=== PATIENT | male | born 2000 | race African-American/Black ===

== ENCOUNTER 2019-11-23 01:24 | Inpatient (IN) | payer MEDICAID, OTHER ==
[~2019-11-23] VITALS: Ht 188 cm; Wt 74.8 kg
[~2019-11-23 01:24] MED LIST: albuterol inhaler
[2019-11-23] MEDS ORDERED: SODIUM CHLORIDE 0.9% 1,000 ML IV ONE (02:15)
[2019-11-23] MEDS ORDERED: FAMOTIDINE 20MG/2ML VIAL IV STA (02:15)
[2019-11-23] MEDS ORDERED: ONDANSETRON HCL 4MG/2ML INJ IV STA (02:15)
[2019-11-23] MEDS ORDERED: MORPHINE SULFATE 4 MG/ML CPJ (NOT FOR IM USE) IV STA (02:15)
[2019-11-23 02:59] LABS: BASOPHILS % 0.2 % (0.0-2.0); EOSINOPHILS % 0.9 % (0.0-5.0); HEMATOCRIT. 44.5 % (42.0-52.0); HEMOGLOBIN. 15.4 g/dL (14.0-18.0); LYMPHOCYTES % 13.3 % (20.0-50.0); MEAN CORPUSCULAR HEMOGLOBIN 29.4 pg (28.0-32.0); MEAN CORPUSCULAR VOLUME 84.6 fL (80.0-94.0); MEAN PLATELET VOLUME 8.9 fl (7.4-10.4); MONOCYTES % 7.2 % (2.0-8.0); NEUTROPHILS % 78.4 % (40.0-76.0); PLATELET 176 x1000/uL (130-400); RED BLOOD CELL COUNT 5.26 mill/uL (4.7-6.1); RED CELL DISTRIBUTION WIDTH 13.5 % (11.6-14.6)
[2019-11-23 03:04] LABS: CHLORIDE 107 mEq/L (98-107)
[2019-11-23] MEDS ORDERED: MORPHINE SULFATE 4 MG/ML CPJ (NOT FOR IM USE) IV NR (04:30)
[2019-11-23] MEDS ORDERED: ONDANSETRON HCL 4MG/2ML INJ IV ONE (06:15)
[2019-11-23] MEDS: DEXT 5%/0.45% NACL 1000ML 1,000 ML IV SCH ×2 (09:20→20:42)
[2019-11-23] MEDS: MORPHINE SULFATE 2 MG/ML CPJ (NOT FOR IM USE) IV PRN ×3 (09:20→20:41)
[2019-11-23] MEDS: ONDANSETRON HCL 4MG/2ML INJ IV PRN ×2 (09:20→19:06)
[2019-11-23] MEDS ORDERED: PIPERACILLIN/TAZ 3.375G PREMIX 50 ML IV NR (11:19)
[2019-11-23 12:40] VITALS: BP 147/77
[2019-11-23 13:00] VITALS: BP 147/77
[2019-11-23 16:00] VITALS: BP 152/74
[2019-11-23] MEDS: PIPERACILLIN/TAZOBACTAM 3.375 G in DEXT 5% WATER 100 ML IV SCH (18:16)
[2019-11-23 20:00] VITALS: BP 149/67
[2019-11-24] VITALS: BP 144/60
[2019-11-24] MEDS: MORPHINE SULFATE 2 MG/ML CPJ (NOT FOR IM USE) IV PRN ×5 (01:47→22:58)
[2019-11-24] MEDS: PIPERACILLIN/TAZOBACTAM 3.375 G in DEXT 5% WATER 100 ML IV SCH ×4 (02:19→21:04)
[2019-11-24 04:00] VITALS: BP 156/80
[2019-11-24 05:47] LABS: CHLORIDE 105 mEq/L (98-107)
[2019-11-24 06:06] LABS: BASOPHILS % 0.1 % (0.0-2.0); EOSINOPHILS % 0.2 % (0.0-5.0); HEMATOCRIT. 44.4 % (42.0-52.0); HEMOGLOBIN. 15.2 g/dL (14.0-18.0); LYMPHOCYTES % 10.3 % (20.0-50.0); MEAN CORPUSCULAR HEMOGLOBIN 29.1 pg (28.0-32.0); MEAN CORPUSCULAR VOLUME 84.7 fL (80.0-94.0); MEAN PLATELET VOLUME 8.7 fl (7.4-10.4); MONOCYTES % 8.5 % (2.0-8.0); NEUTROPHILS % 80.9 % (40.0-76.0); PLATELET 160 x1000/uL (130-400); RED BLOOD CELL COUNT 5.24 mill/uL (4.7-6.1); RED CELL DISTRIBUTION WIDTH 13.2 % (11.6-14.6)
[2019-11-24] MEDS: DEXT 5%/0.45% NACL 1000ML 1,000 ML IV SCH ×2 (07:38→15:06)
[2019-11-24 08:00] VITALS: BP 129/55
[2019-11-24 12:00] VITALS: BP 135/57
[2019-11-24 16:00] VITALS: BP 132/60
[2019-11-24 20:00] VITALS: BP 127/59
[2019-11-25] VITALS: BP 123/49
[2019-11-25] MEDS: PIPERACILLIN/TAZOBACTAM 3.375 G in DEXT 5% WATER 100 ML IV SCH ×3 (03:15→14:19)
[2019-11-25] MEDS: DEXT 5%/0.45% NACL 1000ML 1,000 ML IV SCH ×2 (03:17→11:04)
[2019-11-25 04:00] VITALS: BP 123/59
[2019-11-25 06:04] LABS: METHADONE URINE SCREEN NEGATIVE (NEGATIVE); OPIATES URINE SCREEN PRESUMTIVE POSITIVE (NEGATIVE)
[2019-11-25 06:05] LABS: *AMPHETAMINES SCREEN URINE NEGATIVE (NEGATIVE); *BARBITURATES SCREEN URINE NEGATIVE (NEGATIVE); *BENZODIAZEPINES SCREEN URINE NEGATIVE (NEGATIVE); *COCAINE SCREEN URINE NEGATIVE (NEGATIVE); CANNABINOID URINE SCREEN PRESUMTIVE POSITIVE (NEGATIVE); PHENCYCLIDINE URINE SCREEN NEGATIVE (NEGATIVE)
[2019-11-25 08:00] VITALS: BP 113/45
[2019-11-25 12:00] VITALS: BP 120/57
[2019-11-25 13:57] VITALS: BP 120/57
[2019-11-25 16:00] VITALS: BP 106/61
== END 2019-11-25 15:54 | disposition home or self-care (01) | DRG 282 ==
LOC: ER 01:24 → 6EST 05:19 → EDBEDREQ 05:21 → EDBEDREQSVC 05:21 → EDBEDREQTM 05:21 → ENRESERV 12:10
PROVIDERS: ADMIT Internal Medicine; ATTEND Internal Medicine
DX: K85.90 Acute pancreatitis without necrosis or infection, unspecified (principal); E87.2 Acidosis; J45.909 Unspecified asthma, uncomplicated
CPT/HCPCS: 36415; 80048; 80053; 80305; 83605; 85025; 99285; J2270; J2405; J2543; J3490; J7030; J7060